=== PATIENT | female | born 1995 | race African-American/Black ===

== ENCOUNTER 2022-06-05 11:28 | Outpatient (CLI) | payer OTHER ==
--- NOTE | 2022-06-05 14:55 | MRI Report ---
PROCEDURE: KNEE WO - RT INDICATIONS: KNEE PAIN TECHNIQUE: Noncontrast sagittal PD fast spin echo and T2 fast spin echo with fat saturation, sagittal 3-D gradie nt sequence with fat saturation; coronal T1 spin echo and PD fast spin echo with fat saturation, and axial PD fast spin echo with fat saturation through the knee. COMPARISON: None. FINDINGS: Image quality: Excellent. Menisci: There is tear of the peripheral aspect of the posterior horn the medial meniscus (series 8 image 14; series 17 image 12). The lateral meniscus demonstrates normal morphology and internal signa l. The meniscal root ligaments appear intact. Cruciate ligaments: The anterior cruciate ligament is torn. The posterior cruciate ligament is intac t. Medial structures: There is grade 2 sprain of the medial collateral ligament. The semimembranosus te ndon insertions and meniscocapsular junction appear intact. Visualized portions of the pes anserinus tendons appear normal. No abnormal bursal fluid. Lateral structures: The lateral collateral ligament and the biceps femoris tendon appear intact. Th e popliteus tendon appears normal. Iliotibial band appears normal. Anterior structures: The quadriceps and patellar tendons appear intact. Mild quadriceps tendinitis. Patellar alignment is normal. No femoral trochlear dysplasia or ventral trochlear prominence. No e shelia in the infrapatellar fat pad. Bones and cartilage: No fractures. . There are bone contusions involving the anterior aspect of the lateral femoral condyle and posterior aspect of the medial and lateral tibial plateaus Joint space: There is a large knee joint effusion. No Hamilton's cyst. Normal appearing synovial plic ae are incidentally noted. IMPRESSION: 1. ACL tear. 2. Tear of the posterior horn of the medial meniscus. 3. Grade 2 MCL sprain. 4. Bone contusions involving the anterior aspect of the lateral femoral condyle and posterior aspect of the medial and lateral tibial plateaus. 5. Large knee joint effusion. Reviewed by: Kelly To MD on 06/05/2022 2:54 PM PDT Approved by: Kelly To MD on 06/05/2022 2:54 PM PDT Station ID: [id number]
== END 2022-06-05 11:29 | disposition home or self-care (01) ==
LOC: DI 11:28
PROVIDERS: ATTEND Nurse Practitioner Family
DX: S83.511A Sprain of anterior cruciate ligament of right knee, initial encounter (principal); S83.241A Other tear of medial meniscus, current injury, right knee, initial encounter; S83.411A Sprain of medial collateral ligament of right knee, initial encounter; S70.11XA Contusion of right thigh, initial encounter; M25.461 Effusion, right knee

== ENCOUNTER 2022-11-05 20:28 | Emergency (ER) | payer OTHER ==
[2022-11-05 20:38] VITALS: BP 105/60
[2022-11-05] MEDS ORDERED: IBUPROFEN 800 MG TABLET PO STA (20:41)
[2022-11-05] MEDS ORDERED: HYDROcod/ACET 5/325 Prepack 4 PO STA (20:41)
--- NOTE | 2022-11-05 20:44 | ED Physician Documentation ---
PD HPI LOWER EXT INJURY - Stated complaint Stated Complaint: TWISTED LEFT ANKLE - Chief complaint Chief Complaint: Ext Problem - History obtained from History obtained from: Patient, EMS - Additional information Additional information: She was playing volleyball tonight and came down in her left ankle wrong and has significant pain in the area of the left Achilles tendon cannot walk. No other injuries. PD PAST MEDICAL HISTORY - Past Medical History Past Medical History: No - Past Surgical History Past Surgical History: No - Present Medications Home Medications: Ambulatory Orders Medication Instructions Recorded Confirmed HYDROcod/ACETAM 5/325 [[place] 5/325] 1 - 2 tab PO Q6H PRN #10 tablet 11/05/22 - Allergies Allergies/Adverse Reactions: Allergies Allergy/AdvReac Type Severity Reaction Status Date / Time No Known Drug Allergies Allergy Unverified 11/05/22 20:36 - Social History Does the pt smoke?: No Smoking Status: Never smoker Does the pt drink ETOH?: No Does the pt have substance abuse?: No - Immunizations Immunizations are current?: Yes - POLST Patient has POLST: No PD ED PE NORMAL - Vitals Vital signs reviewed: Yes - General General: Alert and oriented X 3, No acute distress - Extremities Extremities: Other (There is a palpable defect in the left Achilles tendon with no motion with Hopkins's test. There is no bony tenderness of the anterior or lateral or medial left ankle.) - Neuro Neuro: Alert and oriented X 3, Normal speech Results - Vitals Vitals: Vital Signs - 24 hr 11/05/22 20:36 Temperature 37.0 C Heart Rate 90 Respiratory 16 Rate Blood Pressure 105/60 O2 Saturation 98 Oxygen O2 Source Room air Procedures - Splint (location) - Minor Left lower extremity Splint applied by: Nurse, Tech Type of splint: Fiberglass, Posterior (in plantarflexion) Other: Patient tolerated well, No complications, Neurovascular intact, Crutches provided PD Medical Decision Making - ED course ED course: 27-year-old woman presents with a left Achilles tendon traumatic rupture clinically. She is placed in a splint in plantarflexion, nonweightbearing and referred to orthopedics. Departure - Departure Disposition: 01 Home, Self Care Clinical Impression: Achilles tendon rupture Qualifiers: Encounter type: initial encounter Laterality: left Qualified Code(s): S86.012A - Strain of left Achilles tendon, initial encounter Condition: Good Record reviewed to determine appropriate education?: Yes Instructions: ED Tendon Rupture Achilles Prescriptions: HYDROcod/ACETAM 5/325 [[place] 5/325] 1 - 2 tab PO Q6H PRN #10 tablet PRN Reason: Pain Comments: I sent a prescription to [facility] in [place], if pain is mild use tylenol and ibuprofen per package instructions. As discussed, it seems today that you have ruptured your left Achilles tendon. Keep the splint on and dry [place]. No weightbearing until advised it is safe to do so by said orthopedic surgeon. I am prescribing a short course of narcotic pain medication for you. These are potentially dangerous and addictive medications that should be used carefully. These medications may constipate you. Take an zdjs-jfq-tjjbtiu stool softener (docusate) twice daily with plenty of water while taking these medications. If you go 24 hours without a bowel movement, take viye-nrm-xustvlh miralax, per package instructions. Do not drink or drive while taking these medications. If you received narcotic or sedating medications while in the emergency department, do not drive for 24 hours. Store this medication in a safe, secure place and out of reach of children. It is a violation of federal law to give or sell this medication to another person or to use in a manner other than prescribed. The ED will not refill narcotic prescriptions, including prescriptions lost or stolen. To dispose of unwanted medications: 1. [facility] at [address] in [facility] has a medication drop box. They accept prescription medications (in pill form) Wednesday through Wednesday 9:00 a.m. to 5:00 p.m. 2. [facility] [employer] accepts prescription medications (in pill form only) for disposal year round. Call for more information. 3. Contact the [facility] for the next [facility] sponsored prescription drug collection event. , [phone], or [phone]; Note that many narcotic pain relievers also contain Tylenol/acetaminophen. Please ensure that your total dose of acetaminophen from all sources does not exceed 3 g (3000 mg) per day. Forms: Activity restrictions
== END 2022-11-05 21:10 | disposition home or self-care (01) ==
LOC: EDUNIT# → ED 20:28
DX: S86.012A Strain of left Achilles tendon, initial encounter (principal); X50.1XXA Overexertion from prolonged static or awkward postures, initial encounter; Y93.68 Activity, volleyball (beach) (court)
CPT/HCPCS: 29515; 99283; A9270

== ENCOUNTER 2023-04-08 14:22 | Emergency (ER) | payer OTHER ==
[2023-04-08 14:42] VITALS: BP 141/58; O2SAT 99
[2023-04-08 15:05] LABS: BASOPHILS # (AUTO) 0.1 10^3/uL (0.0-0.1); EOSINOPHILS # (AUTO) 0.1 10^3/uL (0.0-0.7); EOSINOPHILS % (AUTO) 1.9 %; HCT - HEMATOCRIT 38.9 % (37.0-47.0); HGB - HEMOGLOBIN 13.5 g/dL (12.0-16.0); LYMPHOCYTES % (AUTO) 34.7 %; MEAN CORPUSCULAR HEMOGLOBIN 29.7 pg (27.0-31.0); MEAN CORPUSCULAR HGB CONC 34.7 g/dL (32.0-36.0); MEAN CORPUSCULAR VOLUME 85.7 fL (81.0-99.0); MEAN PLATELET VOLUME 9.7 fL (7.9-10.8); MONOCYTES # (AUTO) 0.4 10^3/uL (0.0-1.0); MONOCYTES % (AUTO) 6.4 %; NEUTROPHILS # (AUTO) 3.2 10^3/uL (1.5-6.6); NEUTROPHILS % (AUTO) 55.7 %; PLT - PLATELET COUNT 284 10^3/uL (130-450); RED BLOOD COUNT 4.54 10^6/uL (4.20-5.40); RED CELL DISTRIBUTION WIDTH 12.8 % (12.0-15.0); WHITE BLOOD COUNT 5.8 x10^3/uL (4.8-10.8)
--- NOTE | 2023-04-08 15:10 | ED Physician Documentation ---
PD HPI MHE - Stated complaint Stated Complaint: SI - Chief complaint Chief Complaint: MHE - History obtained from History obtained from: Patient - History of Present Illness Primary symptom: Suicidal ideation Timing - onset: How many weeks ago (6) Pain level max: 0 Pain level now: 0 Contributing factors: No: Substance abuse - ETOH, Substance abuse - drugs - Additional information Additional information: Patient is a 27-year-old female who presents to the emergency department stating that she has had suicidal ideation for the past 4 to 6 weeks. She states she does have a therapist on days that she sees. 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 She is awaiting a referral to "Dr. Silva". She is not on any medications for depression. She states that she has a plan but is vague about it. She states she does not feel like she would harm herself if she goes home. She has never attempted suicide. She has never been hospitalized for depression or suicidal ideation. She has a and daughter at home. The patient does not feel she needs inpatient treatment. Review of Systems Constitutional: denies: Fever, Chills Respiratory: denies: Cough GI: denies: Vomiting, Diarrhea : denies: Dysuria, Frequency, Hesitancy, Now EGA Skin: denies: Rash PD PAST MEDICAL HISTORY - Past Medical History Past Medical History: Yes Psych: Depression - Past Surgical History Past Surgical History: No - Present Medications Home Medications: Ambulatory Orders Medication Instructions Recorded Confirmed No Known Home Medications 04/08/23 04/08/23 - Allergies Allergies/Adverse Reactions: Allergies Allergy/AdvReac Type Severity Reaction Status Date / Time No Known Drug Allergies Allergy Unverified 04/08/23 14:35 - Living Situation Living Situation: reports: With family Living Arrangement: reports: At home - Social History Does the pt smoke?: No Smoking Status: Never smoker Does the pt drink ETOH?: No Does the pt have substance abuse?: No - Immunizations Immunizations are current?: Yes - POLST Patient has POLST: No PD ED PE NORMAL - Vitals Vital signs reviewed: Yes - General General: Alert and oriented X 3, No acute distress - HEENT HEENT: PERRL, Moist mucous membranes - Neck Neck: Supple, no meningeal sign - Cardiac Cardiac: RRR - Respiratory Respiratory: No respiratory distress, Clear bilaterally - Abdomen Abdomen: Soft, Non tender, Non distended - Derm Derm: Warm and dry, No rash - Neuro Neuro: Alert and oriented X 3 - Psych Psych: Normal mood, Normal affect Results - Vitals Vitals: Vital Signs - 24 hr 04/08/23 14:29 Temperature 36.8 C Heart Rate 72 Respiratory 18 Rate Blood Pressure 141/58 H O2 Saturation 99 Oxygen O2 Source Room air - Labs Labs: Laboratory Tests 04/08/23 04/08/23 14:56 14:56 WBC 5.8 RBC 4.54 Hgb 13.5 Hct 38.9 MCV 85.7 MCH 29.7 MCHC 34.7 RDW 12.8 Plt Count 284 MPV 9.7 Neut # (Auto) 3.2 Lymph # (Auto) 2.0 [place] # (Auto) 0.4 Eos # (Auto) 0.1 Baso # (Auto) 0.1 Absolute Nucleated RBC 0.00 Nucleated RBC % 0.0 Sodium 137 Potassium 3.9 Chloride 104 Carbon Dioxide 28 Anion Gap 5.0 L BUN 12 Creatinine 0.9 Estimated GFR (MDRD) 92 Glucose 89 Calcium 9.6 Magnesium 1.7 Total Bilirubin 1.0 AST 28 ALT 31 Alkaline Phosphatase 73 Total Creatine Kinase 411 H Total Protein 7.8 Albumin 4.0 Globulin 3.8 Albumin/Globulin Ratio 1.1 Lipase 39 TSH 1.30 Salicylates < 1.5 Acetaminophen 0.3 Ethyl Alcohol < 10.0 PD Medical Decision Making - ED course Complexity details: reviewed results, re-evaluated patient, considered differential, d/w patient, 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 Therefore social work was consulted before lab results. She is not showing any signs of intoxication and feels like she can keep herself safe. Social work evaluated the patient, she is able to contract for safety and will follow-up as an outpatient with her therapist and with [place] psychiatry. P atient not actively suicidal at this time. She has a [id number] child at home who she is forward thinking and wants to take care of. Patient counseled regarding signs and symptoms for which I believe and urgent re-evaluation would be necessary. Patient with good understanding of and agreement to plan and is comfortable going home at this time This document was made in part using voice recognition software. While efforts are made to proofread this document, sound alike and grammatical errors may occur. Departure - Departure Disposition: 01 Home, Self Care Clinical Impression: Depression Qualifiers: Depression Type: unspecified Qualified Code(s): F32.A - Depression, unspecified Condition: Good Instructions: ED Depression Follow-Up: Your,doctor in 1 week [Other] Comments: Please follow-up with your primary care provider for further care and please follow-up as instructed by social work today. Please return if you worsen. Crisis Line and is available to talk to someone [email or web address] is also available to chat with someone online if you prefer. There are also many resources on this website and apps for your phone to help with your mental health You can also text the word START to [phone] to chat with someome via text. Forms: PCP List Discharge Date/Time: 04/08/23 17:20
[2023-04-08 15:50] LABS: ACETAMINOPHEN 0.3 ug/mL; ALBUMIN/GLOBULIN RATIO 1.1 (1.0-2.2); ALKALINE PHOSPHATASE 73 IU/L (42-121); ALT ALANINE AMINOTRANSFERASE 31 IU/L (10-60); AST ASPARTATE AMINOTRANSFERASE 28 IU/L (10-42); BUN - BLOOD UREA NITROGEN 12 mg/dL (6-20); CALCIUM 9.6 mg/dL (8.5-10.3); CARBON DIOXIDE - CO2 28 mmol/L (21-32); CHLORIDE 104 mmol/L (101-111); CK- CREATINE KINASE 411 IU/L (30-223); CREATININE 0.9 mg/dL (0.6-1.3); ETOH - ETHANOL < 10.0 mg/dL; GFR - MDRD 92 (>89); GLUCOSE 89 mg/dL (74-104); LIPASE 39 U/L (11-82); MAGNESIUM 1.7 mg/dL (1.7-2.3); POTASSIUM 3.9 mmol/L (3.5-4.5); SALICYLATE < 1.5 mg/dL; SODIUM 137 mmol/L (135-145); TOTAL PROTEIN 7.8 g/dL (6.4-8.9)
== END 2023-04-08 17:20 | disposition home or self-care (01) ==
LOC: ED 14:22
DX: F32.A Depression, unspecified (principal)
CPT/HCPCS: 36415; 80053; 80307; 80320; 80329; 82550; 83690; 83735; 84443; 85025; 99283